=== PATIENT | female | born 1950 | race Two or more races ===

== ENCOUNTER 2022-03-13 09:41 | Emergency (ER) | payer SELFPAY ==
[2022-03-13] MEDS ORDERED: Sodium Chloride 0.9% 10 ML Syringe FLUSH PRN (10:53)
[2022-03-13] MEDS ORDERED: Sodium Chloride 0.9% 1,000 ML IV SCH (11:00)
== END 2022-03-13 13:45 | disposition home or self-care (01) ==
LOC: JD.ED 09:41
DX: R10.31 Right lower quadrant pain (principal); M25.562 Pain in left knee; M25.561 Pain in right knee; I10 Essential (primary) hypertension; Z79.899 Other long term (current) drug therapy
CPT/HCPCS: 36415; 71045; 74176; 80053; 81001; 83880; 84484; 85025; 86140; 93005; 99284; J3490; J7030

== ENCOUNTER 2024-06-02 16:30 | Emergency (ER) | payer SELFPAY | END 2024-06-02 18:45 | disposition left against medical advice (07) | LOC: JD.ED 16:30 | DX: Z53.21 Procedure and treatment not carried out due to patient leaving prior to being seen by health care provider (principal) ==